=== PATIENT | female | born 2000 ===

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

== ENCOUNTER 2018-01-03 20:28 | Emergency (ER) | payer MEDICAID ==
[2018-01-03 20:59] VITALS: BP 100/68; PULSE 99; RESP 19; TEMP 98.9; O2SAT 100; BMI 29.4
== END 2018-01-03 21:03 | disposition left against medical advice (07) ==
LOC: ED 20:28
DX: Z02.89 Encounter for other administrative examinations (principal); R51 Headache

== ENCOUNTER 2018-02-23 23:37 | Emergency (ER) | payer MEDICAID ==
[2018-02-23 23:37] VITALS: BMI 29.4
--- NOTE | 2018-02-23 23:50 | ED PDOC ---
Arrival/HPI - General Time Seen by Provider: 02/23/18 23:44 Historian: Patient - History of Present Illness Narrative History of Present Illness (Text): 02/23/18 23:50 18yo female with no PMHx currently 30weeks present with complaint of mild suprapubic pain and vaginal bleeding since yesterday. States she only notices blood on a tissue when she wipes herself. She denies nausea, vomiting, dysuria, back pain, fever, chills, any other complaint. Past Medical History - Provider Review Nursing Documentation Reviewed: Yes - Infectious Disease Hx of Infectious Diseases: None - Cardiac Hx Cardiac Disorders: No - Pulmonary Hx Respiratory Disorders: No - Neurological Hx Neurological Disorder: No - HEENT Hx HEENT Disorder: No - Renal Hx Renal Disorder: No - Endocrine/Metabolic Hx Endocrine Disorders: No - Hematological/Oncological Hx Blood Disorders: No - Integumentary Hx Dermatological Disorder: No - Musculoskeletal/Rheumatological Hx Falls: No - Gastrointestinal Hx Gastrointestinal Disorders: No - Genitourinary/Gynecological Hx Genitourinary Disorders: Yes Other/Comment: ovarian cyst - Psychiatric Hx Substance Use: No - Anesthesia Hx Anesthesia: No Family/Social History - Physician Review Nursing Documentation Reviewed: Yes Family/Social History: Unknown Family HX Smoking Status: Never Smoked Hx Alcohol Use: No Hx Substance Use: No Allergies/Home Meds Allergies/Adverse Reactions: Allergies No Known Allergies Allergy (Verified 02/23/18 23:52) Home Medications: Home Meds Medication Instructions Recorded Confirmed Prenat 115/Iron Fum/Folic/Dss 1 each PO DAILY 01/03/18 02/23/18 [ 19 Tablet] Review of Systems - Physician Review All systems were reviewed & negative as marked: Yes - Review of Systems Constitutional: Normal Eyes: Normal ENT: Normal Respiratory: Normal Cardiovascular: Normal Gastrointestinal: Abdominal Pain. absent: Constipation, Diarrhea, Nausea, Vomiting, Hematochezia, Hematemesis Genitourinary Female: Vaginal Bleeding. absent: Dysuria, Frequency Musculoskeletal: Normal Skin: Normal Neurological: Normal Endocrine: Normal Hemo/Lymphatic: Normal Psychiatric: Normal Physical Exam Vital Signs Reviewed: Yes Vital Signs Temp Pulse Resp BP Pulse Ox 02/24/18 01:27 105 H 20 107/60 100 02/24/18 00:01 98.3 F 104 H 18 109/66 100 Temperature: Afebrile Blood Pressure: Normal Pulse: Regular Respiratory Rate: Normal Appearance: Positive for: Well-Appearing, Non-Toxic, Comfortable Pain Distress: None Mental Status: Positive for: Alert and Oriented X 3 - Systems Exam Head: Present: Atraumatic, Normocephalic Pupils: Present: PERRL Extroacular Muscles: Present: EOMI Conjunctiva: Present: Normal Mouth: Present: Moist Mucous Membranes Neck: Present: Normal Range of Motion Respiratory/Chest: Present: Clear to Auscultation, Good Air Exchange. No: Respiratory Distress, Accessory Muscle Use Cardiovascular: Present: Regular Rate and Rhythm, Normal S1, S2. No: Murmurs Abdomen: Present: Distention (Gravid abdomen). No: Tenderness, Peritoneal Signs Back: Present: Normal Inspection Upper Extremity: Present: Normal Inspection. No: Cyanosis, Edema Lower Extremity: Present: Normal Inspection. No: Edema Neurological: Present: GCS=15, CN II-XII Intact, Speech Normal Skin: Present: Warm, Dry, Normal Color. No: Rashes Psychiatric: Present: Alert, Oriented x 3, Normal Insight, Normal Concentration Medical Decision Making ED Course and Treatment: 02/24/18 01:46 Pt in ED for stated history. She was hemodynamically stable and in no distress. She denied gross vaginal bleeding, notes that blood is only on the tissue when she wipes after urination. She have UTI and was treated with macrobid. Leukocytosis was noted which is likely secondary to her . age [place] There is a live intrauterine . Measurements of the biparietal diameter, head circumference, abdominal circumference, femur length correspond to gestational age of 31 weeks 1 day. A heart rate of 136-150 beats per minute was obtained. The fetus is cephalic in presentation. The placenta is anterior in location and appears normal. The cervix measures 5.3 cm. There is nonvisualization of the maternal ovaries. IMPRESSION: Single live IUP. All result was DW the pt. She was advised to f/u with her OB. TRT ED for any new or worsening symptoms - Lab Interpretations Lab Results: 02/24/18 00:30 02/24/18 00:30 Lab Results 02/24/18 01:10: Urine Color Yellow, Urine Appearance Sl cloudy, Urine pH 6.5, Ur Specific [place] <= 1.005, Urine Protein Negative, Urine Glucose (UA) Negative, Urine Ketones Negative, Urine Blood Moderate H, Urine Nitrate Negative , Urine Bilirubin Negative, Urine Urobilinogen 0.2, Ur Leukocyte Esterase Moderate H, Urine RBC 1 - 3, Urine WBC 2 - 5, Ur Epithelial Cells 3 - 4, Urine Bacteria Few, Urine HCG, Qual Positive 02/24/18 01:10: PT 11.0, INR 0.97, APTT 24.1 L 02/24/18 00:30: Sodium 140, Potassium 4.0, Chloride 104, Carbon Dioxide 21, Anion Gap 19, BUN 8, Creatinine 0.8, Est GFR ( Amer) > 60, Est GFR (Non- Af Amer) > 60, Random Glucose 75, Calcium 9.1, Total Bilirubin 0.2, AST 34, ALT 31, Alkaline Phosphatase 85, Total Protein 7.1, Albumin 4.1, Globulin 3.0, Albumin/Globulin Ratio 1.4 02/24/18 00:30: WBC 17.7 H D, RBC 3.96, Hgb 10.8 L, Hct 33.5 L, MCV 84.6, MCH 27.3, MCHC 32.2, RDW 14.0, Plt Count 195, MPV 12.6 H, Gran % 82.6 H, Lymph % ( Auto) 10.2 L, [place] % (Auto) 6.3 H, Eos % (Auto) 0.8 L, Baso % (Auto) 0.1, Gran # 14.65 H, Lymph # (Auto) 1.8, [place] # (Auto) 1.1 H, Eos # (Auto) 0.2, Baso # ( Auto) 0.01 - RAD Interpretation Radiology Orders: 02/24/18 00:06 AGE [US] Stat - Medication Orders Current Medication Orders: Discontinued Medications Sodium Chloride (Sodium Chloride 0.9%) 1,000 mls @ 999 mls/hr IV .Q1H1M STA Stop: 02/24/18 01:05 Last Admin: 02/24/18 00:54 Dose: 999 mls/hr eMAR Start Stop Document 02/24/18 00:54 (Rec: 02/24/18 00:55 [id number]) Intravenous Solution Start Date 02/24/18 Start Time 00:55 Nitrofurantoin Macrocrystals (Macrobid) 100 mg PO ONCE STA PRN Reason: Protocol Stop: 02/24/18 01:38 Disposition/Present on Arrival - Present on Arrival Any Indicators Present on Arrival: No History of DVT/PE: No History of Uncontrolled Diabetes: No Urinary Catheter: No History Surgical Site Infection Following: None - Disposition Have Diagnosis and Disposition been Completed?: Yes Diagnosis: Abdominal pain during , UTI (urinary tract infection) Disposition: HOME/ ROUTINE Disposition Time: 01:45 Patient Plan: Discharge Patient Problems: Current Active Problems Problem Status Onset Abdominal pain during Acute Urinary tract infection Acute Condition: STABLE Discharge Instructions (ExitCare): Urinary Tract Infections in Adults, Acute Abdomen (Belly Pain), Adult (DC) Additional Instructions: Follow up with your OB Return to ED for any new or worsening symptoms Prescriptions: Nitrofurantoin Macrocrystals [Macrobid] 100 mg PO BID #14 cap Referrals: Nettie Rudolph MD [Primary Care Provider] - Follow up with primary
[2018-02-24] MEDS ORDERED: Sodium Chloride 0.9% 1,000 ML IV STA (00:05)
[2018-02-24 00:48] LABS: BASO # 0.01 K/mm3 (0.0-2.0); BASO % 0.1 % (0.0-3.0); EOS # 0.2 (0.0-0.7); EOS % 0.8 % (1.5-5.0); GRAN # 14.65 (1.4-6.5); GRAN % 82.6 % (50.0-68.0); HEMOGLOBIN 10.8 g/dL (12.0-16.0); LYMPH # 1.8 (1.2-3.4); LYMPH % 10.2 % (22.0-35.0); MEAN CELL VOLUME 84.6 fl (80.0-105.0); MEAN CORPUSCULAR HEMOGLOBIN 27.3 pg (25.0-35.0); MEAN CORPUSCULAR HGB CONC 32.2 g/dl (31.0-37.0); MEAN PLATELET VOLUME 12.6 fl (7.0-11.0); MONO # 1.1 (0.1-0.6); MONO % 6.3 % (1.0-6.0); RBC 3.96 10^6/uL (3.5-6.1); WHITE BLOOD COUNT 17.7 10^3/ul (4.5-11.0)
[2018-02-24 00:57] LABS: ALB/GLOB RATIO 1.4 (1.1-1.8); ALBUMIN 4.1 g/dL (3.0-4.8); ALT/SGPT 31 U/L (7-56); AST/SGOT 34 U/L (14-36); BLOOD UREA NITROGEN 8 mg/dL (7-21); CALCIUM 9.1 mg/dL (8.4-10.5); GFR AFRICAN-AMERICAN > 60; GFR NON-AFRICAN AMERICAN > 60
[2018-02-24 01:04] VITALS: O2SAT 100
[2018-02-24 01:23] LABS: PH,URINE 6.5 (4.7-8.0); URINE BILIRUBIN NEGATIVE (NEGATIVE); URINE BLOOD MODERATE (NEGATIVE); URINE GLUCOSE (UA) NEGATIVE (NEGATIVE); URINE LEUKOCYTE ESTERASE MODERATE Leu/uL (NEGATIVE); URINE PROTEIN NEGATIVE mg/dL (<30 mg/dL); URINE UROBILINOGEN 0.2 E.U./dL (<1 E.U./dL)
[2018-02-24 01:27] LABS: URINE APPEARANCE SL CLOUDY (CLEAR); URINE COLOR YELLOW (YELLOW)
[2018-02-24 01:28] VITALS: RESP 20
[2018-02-24 01:29] LABS: HCG,QUALITATIVE URINE POSITIVE (NEGATIVE)
[2018-02-24 01:46] LABS: URINE BACTERIA FEW (NEG)
--- NOTE | 2018-02-24 01:47 | US ---
EXAM: US Transabd After First Trimester First Gest EXAM DATE/TIME: 02/24/2018 12:06 AM CLINICAL HISTORY: 18 years old, female; Signs and symptoms; Lmp or gestational age (in weeks): 07/31/17; Other: Abd pain/spotting; ; Additional info: Abdominal pain TECHNIQUE: Real-time ultrasound of the transabd after first trimester first gest with image documentation. COMPARISON: US - AGE 2017-11-23 16:04 FINDINGS: There is a live intrauterine . Measurements of the biparietal diameter, head circumference, abdominal circumference, femur length correspond to gestational age of 31 weeks 1 day. A heart rate of 136-150 beats per minute was obtained. The fetus is cephalic in presentation. The placenta is anterior in location and appears normal. The cervix measures 5.3 cm. There is nonvisualization of the maternal ovaries. IMPRESSION: Single live IUP.
[2018-02-24 01:49] LABS: INR 0.97 (0.93-1.08); PARTIAL THROMBOPLASTIN TIME 24.1 Seconds (25.1-36.5)
[2018-02-24 02:28] VITALS: BP 109/63; PULSE 108; TEMP 98.9
== END 2018-02-24 02:20 | disposition home or self-care (01) ==
LOC: ED 23:37
DX: O23.43 Unspecified infection of urinary tract in pregnancy, third trimester (principal); R10.9 Unspecified abdominal pain; Z3A.31 31 weeks gestation of pregnancy
CPT/HCPCS: 76815; 80053; 81001; 84702; 84703; 85025; 85610; 85730; 86850; 86900; 87086; 99284; J7040

== ENCOUNTER 2018-12-07 16:57 | Emergency (ER) | payer SELFPAY ==
[2018-12-07 16:58] VITALS: BMI 34.4
[2018-12-07 17:44] VITALS: TEMP 98.4
[2018-12-07] MEDS ORDERED: Sodium Chloride 0.9% 1,000 ML IV STA (18:05)
[2018-12-07 18:55] LABS: BASO # 0.01 K/mm3 (0.0-2.0); BASO % 0.1 % (0.0-3.0); EOS # 0.1 (0.0-0.7); EOS % 0.6 % (1.5-5.0); HEMOGLOBIN 11.1 g/dL (12.0-16.0); LYMPH # 1.1 (1.2-3.4); MEAN CELL VOLUME 83.7 fl (80.0-105.0); MEAN CORPUSCULAR HEMOGLOBIN 26.6 pg (25.0-35.0); MEAN CORPUSCULAR HGB CONC 31.7 g/dl (31.0-37.0); MEAN PLATELET VOLUME 13.5 fl (7.0-11.0); MONO # 0.4 (0.1-0.6); MONO % 5.1 % (1.0-6.0); RBC 4.18 10^6/uL (3.5-6.1); RED CELL DISTRIBUTION WIDTH 13.4 % (11.5-14.5); WHITE BLOOD COUNT 8.2 10^3/uL (4.5-11.0)
[2018-12-07 19:03] LABS: ALB/GLOB RATIO 1.4 (1.1-1.8); ALBUMIN 4.4 g/dL (3.0-4.8); ALT/SGPT 16 U/L (7-56); AST/SGOT 28 U/L (14-36); BLOOD UREA NITROGEN 16 mg/dL (7-21); CALCIUM 9.2 mg/dL (8.4-10.5); GFR NON-AFRICAN AMERICAN > 60; INR 1.12; LIPASE 51 U/L (23-300); PARTIAL THROMBOPLASTIN TIME 36.1 Seconds (26.9-38.3); PROTHROMBIN TIME 12.4 SECONDS (9.4-12.5)
[2018-12-07 19:11] LABS: PH,URINE 6.5 (4.7-8.0); URINE APPEARANCE SLIGHT-CLOUDY (CLEAR); URINE BILIRUBIN NEGATIVE (NEGATIVE); URINE BLOOD NEGATIVE (NEGATIVE); URINE COLOR YELLOW (YELLOW); URINE GLUCOSE (UA) NEGATIVE (NEGATIVE); URINE LEUKOCYTE ESTERASE SMALL Leu/uL (NEGATIVE); URINE PROTEIN 30 mg/dL (<30 mg/dL); URINE UROBILINOGEN 0.2 E.U./dL (<1 E.U./dL)
--- NOTE | 2018-12-07 19:41 | ED PDOC ---
Arrival/HPI - General Chief Complaint: Abdominal Pain Time Seen by Provider: 12/07/18 17:48 Historian: Patient - History of Present Illness Narrative History of Present Illness (Text): 12/07/18 19:35 18 year old female, with no significant past medical history, presents to the emergency department complaining of intermittent epigastric abdominal pain/cramping with nausea and 4 episodes of diarrhea this morning. Since then, patient denies any diarrhea and reports just pain and nausea. Patient never had this pain before. Patient denies any history if gallbladder disease or any past abdominal surgeries. Patient denies any fever, chills, chest pain, shortness of breath, vomiting, urinary symptoms, back pain, neck pain, headache, dizziness, or any other complaints. PMD: Dr. Maura Rudolph Symptom Onset: Gradual Symptom Course: Unchanged Activities at Onset: Light Context: Home Past Medical History - Provider Review Nursing Documentation Reviewed: Yes - Infectious Disease Hx of Infectious Diseases: None - Reproductive Menopause: No - Cardiac Hx Cardiac Disorders: No - Pulmonary Hx Respiratory Disorders: No - Neurological Hx Neurological Disorder: No - HEENT Hx HEENT Disorder: No - Renal Hx Renal Disorder: No - Endocrine/Metabolic Hx Endocrine Disorders: No - Hematological/Oncological Hx Blood Disorders: No - Integumentary Hx Dermatological Disorder: No - Musculoskeletal/Rheumatological Hx Falls: No - Gastrointestinal Hx Gastrointestinal Disorders: No - Genitourinary/Gynecological Hx Genitourinary Disorders: Yes Other/Comment: ovarian cyst - Psychiatric Hx Depression: No Hx Substance Use: No - Anesthesia Hx Anesthesia: No Family/Social History - Physician Review Nursing Documentation Reviewed: Yes Family/Social History: No Known Family HX Smoking Status: Never Smoked Hx Alcohol Use: No Hx Substance Use: No Allergies/Home Meds Allergies/Adverse Reactions: Allergies No Known Allergies Allergy (Verified 02/23/18 23:52) Review of Systems - Physician Review All systems were reviewed & negative as marked: Yes - Review of Systems Constitutional: absent: Fevers, Other (chills) Respiratory: absent: SOB Cardiovascular: absent: Chest Pain Gastrointestinal: Abdominal Pain, Diarrhea, Nausea. absent: Vomiting Genitourinary Female: absent: Dysuria, Frequency, Hematuria Musculoskeletal: absent: Back Pain, Neck Pain Neurological: absent: Headache, Dizziness Physical Exam Vital Signs Reviewed: Yes Vital Signs Temp Pulse Resp BP Pulse Ox 12/07/18 17:41 98.4 F 98 H 18 116/73 100 Temperature: Afebrile Blood Pressure: Normal Pulse: Tachycardic Respiratory Rate: Normal Appearance: Positive for: Well-Appearing, Non-Toxic, Comfortable Pain Distress: Mild Mental Status: Positive for: Alert and Oriented X 3 - Systems Exam Head: Present: Atraumatic, Normocephalic Pupils: Present: PERRL Extroacular Muscles: Present: EOMI Conjunctiva: Present: Normal Mouth: Present: Dry Neck: Present: Normal Range of Motion Respiratory/Chest: Present: Clear to Auscultation, Good Air Exchange. No: Respiratory Distress, Accessory Muscle Use Cardiovascular: Present: Regular Rate and Rhythm, Normal S1, S2. No: Murmurs Abdomen: Present: Tenderness (upper abdominal tenderness, greater on the right upper quadrant). No: Distention, Peritoneal Signs, Other (Jackson signs) Back: Present: Normal Inspection Upper Extremity: Present: Normal Inspection. No: Cyanosis, Edema Lower Extremity: Present: Normal Inspection. No: Edema Neurological: Present: GCS=15, CN II-XII Intact, Speech Normal Skin: Present: Warm, Dry, Normal Color. No: Rashes Psychiatric: Present: Alert, Oriented x 3, Normal Insight, Normal Concentration Medical Decision Making ED Course and Treatment: 12/07/18 18:05 Impression: 18 year old female presents complaining of intermittent epigastric abdominal pain/cramping associated with nausea and 4 episodes of diarrhea this morning. Plan: -- Labs -- Pepcid, IV Fluids, Toradol, Zofran -- Urine Culture -- Urinalysis w/ micro -- Abdomen Complete US -- Reassess and disposition Progress Notes: Labs reviewed : cbc, cmp wnl, ua:+protien/+ketones. 12/07/18 22:09 US abdomen : FINDINGS: LIVER: Normal in size and echogenicity. GALLBLADDER: No gallstone. No gallbladder wall thickening. No pericholecystic fluid. COMMON BILE DUCT: No dilation. 4.2 mm in transverse caliber. PANCREAS: Unremarkable where visualized. The distal pancreas is obscured by overlying bowel gas. KIDNEYS: Unremarkable. Normal renal contours. No renal mass or calculus. No hydronephrosis. SPLEEN: Unremarkable. AORTA: No aneurysm. IVC: Unremarkable as visualized. MISCELLANEOUS: No other significant findings identified. IMPRESSION: Unremarkable complete abdominal ultrasound. Electronically signed on Dec 07, 2018 9:57:36 PM EST by: Otilio Cardona M.D., MBA Certified By ABR & CBCCT Fellowship Trained MRI and CT Specialist 12/07/18 22:13 On reevaluation, patient reports of continued nausea and pain to the epigastric and mid abdomen. On exam, patient remains awake alert and oriented 3 in no acute distress. Abdomen soft and +tenderness to the epigastric and mid abdomen. CT A/P w/ IV contrast, morphine and zofran IV ordered. 12/08/18 00:32 CT Abdomen/Pelvis: FINDINGS: LUNG BASES: The lung bases appear clear. No pleural effusions are seen. LIVER: Unremarkable. GALLBLADDER AND BILE DUCTS: The gallbladder appears within normal limits. No radioopaque gallstones are seen. No biliary ductal dilatation is evident. PANCREAS: Unremarkable. SPLEEN: Unremarkable. ADRENAL GLANDS: Unremarkable. KIDNEYS, URETERS, AND BLADDER: The kidneys appear within normal limits. There is no hydronephrosis or hydroureter. No urinary calculi are seen. The urinary bladder is normal in size and configuration. STOMACH AND BOWEL: Unremarkable appearance of the stomach. No evidence of bowel obstruction. There is mucosal wall thickening and fluid within the lumen of the ileal small intestinal tract, compatible with ileitis. Infectious or inflammatory etiologies are thought most likely. Liquid stool is seen throughout the colon compatible with a diarrheal illness. The possibility of colitis should also be considered. APPENDIX: No evidence of acute appendicitis on CT examination. PERITONEUM: No free fluid. No free air. LYMPH NODES: No lymphadenopathy is evident. REPRODUCTIVE: Unremarkable as visualized. VASCULATURE: No evidence of abdominal aortic aneurysm. BONES: No aggressive appearing osseous lesion. No acute osseous pathology evident. IMPRESSION: 1. Evidence of ileitis. 2. Liquid stool throughout the colon indicative of diarrhea. Colitis should also be considered. Electronically signed on Dec 08, 2018 12:20:21 AM EST by: Otilio Cardona M.D., EFRAIN Certified By ABR & CBCCT Fellowship Trained MRI and CT Specialist 12/08/18 00:45 On reevaluation, patient reports improvement of symptoms, denies any nausea or pain. On exam, patient remains awake alert and oriented 3 in no acute distress, she is cheerful, smiling and in good spirits. Abdomen soft and nontender, repeat neuro exam shows no focal findings. CT results d/w the patient. Cipro and flagyl IV ordered. Dx of ileitis with possible colitis d/w the patient. Patient given the option for further observation or to follow up as an outpatient. Patient states that she feels comfortable going home and would rather be discharged, states that she can follow up with her pmd or the clinic. Advised to follow up with primary care physician or the clinic in 1-2 days without fail. Advised to take medication as prescribed. Return to the emergency room at any time for any new or worsening symptoms. Patient states she fully agrees with and understands discharge instructions. States that she agrees with the plan and disposition. Verbalized and repeated discharge instructions and plan. I have given the patient opportunity to ask any additional questions. - Lab Interpretations Lab Results: PT 12.4 SECONDS (9.4-12.5) 12/07/18 18:49 INR 1.12 12/07/18 18:49 APTT 36.1 Seconds (26.9-38.3) 12/07/18 18:49 Total Bilirubin 0.5 mg/dL (0.2-1.3) 12/07/18 18:49 AST 28 U/L (14-36) 12/07/18 18:49 ALT 16 U/L (7-56) 12/07/18 18:49 Alkaline Phosphatase 84 U/L (38-126) 12/07/18 18:49 Total Protein 7.6 g/dL (5.8-8.3) 12/07/18 18:49 Albumin 4.4 g/dL (3.0-4.8) 12/07/18 18:49 Globulin 3.2 gm/dL 12/07/18 18:49 Albumin/Globulin Ratio 1.4 (1.1-1.8) 12/07/18 18:49 Lipase 51 U/L (23-300) 12/07/18 18:49 Urine Color Yellow (YELLOW) 12/07/18 19:00 Urine Appearance Slight-cloudy (CLEAR) 12/07/18 19:00 Urine pH 6.5 (4.7-8.0) 12/07/18 19:00 Ur Specific [place] >= 1.030 (1.005-1.035) 12/07/18 19:00 Urine Protein 30 mg/dL (<30 mg/dL) H 12/07/18 19:00 Urine Glucose (UA) Negative mg/dL (NEGATIVE) 12/07/18 19:00 Urine Ketones 15 mg/dL (NEGATIVE) H 12/07/18 19:00 Urine Blood Negative (NEGATIVE) 12/07/18 19:00 Urine Nitrate Negative (NEGATIVE) 12/07/18 19:00 Urine Bilirubin Negative (NEGATIVE) 12/07/18 19:00 Urine Urobilinogen 0.2 E.U./dL (<1 E.U./dL) 12/07/18 19:00 Ur Leukocyte Esterase [place]/uL (NEGATIVE) H 12/07/18 19:00 Urine RBC None /hpf (0-2) 12/07/18 19:00 Urine WBC 1 - 3 /hpf (0-6) 12/07/18 19:00 Ur Epithelial Cells 10 - 12 /hpf (0-5) H 12/07/18 19:00 - RAD Interpretation Radiology Orders: 12/07/18 18:05 ABDOMEN COMPLETE [US] Stat - Medication Orders Current Medication Orders: Discontinued Medications Famotidine (Pepcid) 20 mg IVP STAT STA Stop: 12/07/18 18:06 Last Admin: 12/07/18 18:44 Dose: 20 mg IVP Administration Document 12/07/18 18:44 NATACHA (Rec: 12/07/18 18:44 NATACHA [id number]) Charges for Administration # of IVP Administrations 1 Sodium Chloride (Sodium Chloride 0.9%) 1,000 mls @ 1,000 mls/hr IV .Q1H STA Stop: 12/07/18 19:04 Last Admin: 12/07/18 18:43 Dose: 1,000 mls/hr eMAR Start Stop Document 12/07/18 18:43 LA (Rec: 12/07/18 18:43 LA [id number]) Intravenous Solution Start Date 12/07/18 Start Time 18:43 End Date 12/07/18 End time 19:43 Total Infusion Time 60 Ketorolac Tromethamine (Toradol) 30 mg IVP STAT STA Stop: 12/07/18 18:06 Last Admin: 12/07/18 18:44 Dose: 30 mg MAR Pain Assessment Document 12/07/18 18:44 LA (Rec: 12/07/18 18:44 NATACHA [id number]) Pain Reassessment Is this a pain reassessment? No Sleep Is patient sleeping during reassessment? No Presence of Pain Presence of Pain Yes Location Pain Location Body Site Abdomen Description Intensity of Pain at present 9 IVP Administration Document 12/07/18 18:44 LA (Rec: 12/07/18 18:44 LA [id number]) Charges for Administration # of IVP Administrations 1 Ondansetron HCl (Zofran Inj) 4 mg IVP STAT STA Stop: 12/07/18 18:06 Last Admin: 12/07/18 18:44 Dose: 4 mg IVP Administration Document 12/07/18 18:44 LA (Rec: 12/07/18 18:44 LA [id number]) Charges for Administration # of IVP Administrations 1 - PA / TOWER CONTROL OPERATOR / Resident Statement MD/DO has reviewed & agrees with the documentation as recorded. - Scribe Statement The provider has reviewed the documentation as recorded by the Bernice Moon Provider Scribe Attestation: All medical record entries made by the Damarisibnanci were at my direction and personally dictated by me. I have reviewed the chart and agree that the record accurately reflects my personal performance of the history, physical exam, medical decision making, and the department course for this patient. I have also personally directed, reviewed, and agree with the discharge instructions and disposition. Disposition/Present on Arrival - Present on Arrival Any Indicators Present on Arrival: No History of DVT/PE: No History of Uncontrolled Diabetes: No Urinary Catheter: No History of Decub. Ulcer: No History Surgical Site Infection Following: None - Disposition Have Diagnosis and Disposition been Completed?: Yes Diagnosis: Abdominal pain, Ileitis Disposition: HOME/ ROUTINE Disposition Time: 01:00 Patient Plan: Discharge Patient Problems: Current Active Problems Problem Status Onset Abdominal pain Acute Ileitis Acute Condition: STABLE Discharge Instructions (ExitCare): Acute Abdomen (Belly Pain), Adult (DC), Viral Gastroenteritis, Colitis (DC) Additional Instructions: Thank you for letting us take care of you today. You were treated for abdominal pain, ileitis, consider colitis. The emergency medical care you received today was directed at your acute symptoms. If you were prescribed any medication, please fill it and take as directed. It may take several days for your symptoms to resolve. Return to the Emergency Department if your symptoms worsen, do not improve, or if you have any other problems. Please contact your doctor in 2 days for re-evaluation and follow up / or call one of the physicians/clinics you have been referred to that are listed on the Patient Visit Information form that is included in your discharge packet. Bring any paperwork you were given at discharge with you along with any medications you are taking to your follow up visit. Our treatment cannot replace ongoing medical care by a primary care provider (PCP) outside of the emergency department. [facility]. If you had an US or CT scan: A Radiologist will review the ED reading if any change in treatment is needed we will contact you. If you had a urine culture: It will take several days for the results, if any change in treatment is needed we will contact you. Follow up CT results with pmd or the clinic. CT A/P : IMPRESSION: 1. Evidence of ileitis. 2. Liquid stool throughout the colon indicative of diarrhea. Colitis should also be considered. Prescriptions: Ciprofloxacin [Cipro] 500 mg PO BID #14 tab metroNIDAZOLE [Flagyl] 500 mg PO TID #21 tab traMADol [Ultram] 50 mg PO TID PRN #12 tab PRN Reason: Pain, Moderate (4-7) Referrals: Nettie Rudolph MD [Primary Care Provider] - [place] up [place] [facility] [place] - Follow up with primary [facility] rumr: turn off the lights [facility] [Outside] - Follow up with primary Forms: Chug ([place] Islander), WORK NOTE, SCHOOL NOTE
[2018-12-07] MEDS ORDERED: Morphine 4 mg/ml ISec IVP STA (22:12)
[2018-12-07] MEDS ORDERED: Iohexol 350 MG/100 ML VIAL ONE (23:01)
[2018-12-08] MEDS ORDERED: metroNIDAZOLE IV 500 mg/100 ml 500 MG/100 ML BAG IVPB STA (00:50)
[2018-12-08] MEDS ORDERED: Ciprofloxacin 400mg/200ml D5W 400 MG/200 ML BAG IVPB STA (00:50)
[2018-12-08 03:43] VITALS: BP 112/60; PULSE 89; RESP 17; O2SAT 99
--- NOTE | 2018-12-08 10:17 | US ---
HISTORY: epigastric pain COMPARISON: None available. TECHNIQUE: Sonographic evaluation of the abdomen. FINDINGS: LIVER: Measures 15 3 cm in sagittal dimension and appears within normal limits of size, shape, and echotexture. No focal hepatic mass identified. The main portal vein appears patent with normal directional flow. No intrahepatic bile duct dilatation. GALLBLADDER: No gallstones. No gallbladder wall thickening. Negative sonographic Jackson's sign as assessed by the wire worker. COMMON BILE DUCT: Measures 4 mm. PANCREAS: Not well visualized. RIGHT KIDNEY: Measures 10.5 x 4.2 x 4.9cm. No obstructing calculus or hydronephrosis identified. LEFT KIDNEY: Measures 11 point by 4 6 x 5 3cm. No obstructing calculus or hydronephrosis identified. SPLEEN: Measures approximately 9.9 cm. AORTA: Limited views appear unremarkable. IVC: Limited views appear unremarkable. OTHER FINDINGS: None. IMPRESSION: Unremarkable abdominal sonogram with findings as above. Preliminary impression was provided by [employer].
--- NOTE | 2018-12-08 10:33 | CT ---
Date of service: 12/07/2018 PROCEDURE: CT Abdomen and Pelvis with contrast HISTORY: epigastric pain COMPARISON: Abdominal ultrasound performed 12/07/18 TECHNIQUE: Contrast dose: 95 cc Omnipaque 350 IV Radiation dose: Total exam DLP = 424.21 mGy-cm. This CT exam was performed using one or more of the following dose reduction techniques: Automated exposure control, adjustment of the mA and/or kV according to patient size, and/or use of iterative reconstruction technique. FINDINGS: LOWER THORAX: No visible consolidation, pleural effusion, or pneumothorax. LIVER: Unremarkable. GALLBLADDER AND BILE DUCTS: Unremarkable. PANCREAS: Unremarkable. SPLEEN: Unremarkable. ADRENALS: Unremarkable. KIDNEYS AND URETERS: The kidneys enhance symmetrically. No hydronephrosis or obstructing calculus identified. VASCULATURE: No aortic aneurysm. No atherosclerotic calcification or mural plaque present. BOWEL: Stomach is nondistended. Lack of oral contrast limits evaluation for bowel pathology. Bowel loops appear within normal limits of caliber without evidence of obstruction. APPENDIX: The appendix appears within normal limits of caliber. No secondary signs of acute appendicitis. PERITONEUM: No significant free fluid. No definite free air. LYMPH NODES: No bulky adenopathy identified. BLADDER: Unremarkable. REPRODUCTIVE: The uterus is present. Probable bilateral ovarian cysts. BONES: No acute osseous abnormality is detected. OTHER FINDINGS: None. IMPRESSION: Bilateral right greater than left probable ovarian cysts. Trace pelvic free fluid. Further evaluation with follow-up pelvic ultrasound may be considered if indicated. Preliminary impression was provided by [employer]. Study marked PA review.
--- NOTE | 2018-12-08 16:37 | CARD ---
APPROVED REPORT Date of service: 12/07/2018 EKG Measurement Heart [id number] MD [id number] <Conclusion> Normal sinus rhythm Nonspecific T wave abnormality Abnormal ECG
== END 2018-12-08 03:41 | disposition home or self-care (01) ==
LOC: ED 16:57
DX: K52.9 Noninfective gastroenteritis and colitis, unspecified (principal)
CPT/HCPCS: 74177; 76700; 80053; 81001; 81025; 83690; 83735; 85025; 85610; 85730; 87086; 93005; 96361; 96365; 96367; 96375; 96376; 99283; J0744; J1885; J2270; J2405; J7030; Q9967